=== PATIENT | male | born 1960 | race Caucasian/White ===

== ENCOUNTER 2021-09-07 14:26 | Outpatient (CLI) | payer OTHER | END 2021-09-07 14:27 | disposition home or self-care (01) | LOC: ULT 14:26 | PROVIDERS: ATTEND Nurse Practitioner Family | DX: R10.2 Pelvic and perineal pain (principal) | CPT/HCPCS: 76999 ==

== ENCOUNTER 2022-07-15 12:24 | Outpatient (CLI) | payer BC | END 2022-07-15 12:25 | disposition home or self-care (01) | LOC: BICCT 12:24 | PROVIDERS: ATTEND Internal Medicine Cardiovascular Disease | DX: Z12.2 Encounter for screening for malignant neoplasm of respiratory organs (principal); Z87.891 Personal history of nicotine dependence | CPT/HCPCS: 71271 ==

== ENCOUNTER 2024-03-24 14:08 | Outpatient (CLI) | payer BC | END 2024-03-24 14:09 | disposition home or self-care (01) | LOC: BICCT 14:08 | PROVIDERS: ATTEND Nurse Practitioner Family | DX: I77.89 Other specified disorders of arteries and arterioles (principal); I77.810 Thoracic aortic ectasia | CPT/HCPCS: 71275 ==

== ENCOUNTER 2025-04-21 09:56 | Outpatient (CLI) | payer OTHER | END 2025-04-21 09:57 | disposition home or self-care (01) | LOC: BICCT 09:56 | PROVIDERS: ATTEND Internal Medicine Cardiovascular Disease | DX: E78.2 Mixed hyperlipidemia (principal); I70.0 Atherosclerosis of aorta | CPT/HCPCS: 75571 ==